=== PATIENT | female | born 1995 | race Caucasian/White ===

== ENCOUNTER 2016-11-21 21:52 | Emergency (ER) | payer OTHER ==
[2016-11-21 21:59] VITALS: BP 123/78; PULSE 54; RESP 18; TEMP 98.1; O2SAT 98
--- NOTE | 2016-11-21 22:13 | EDPHY ---
H & P Stated Complaint: period for over 2 months, bruising and fatigue Time Seen by Provider: 11/21/16 22:06 HPI/ROS: CHIEF COMPLAINT: Vaginal bleeding HISTORY OF PRESENT ILLNESS: The patient has had light vaginal bleeding and spotting for the last 2 months. She is concerned because she feels weak. She has been taking iron pills. She denies risk of and is not sexually active. She has a copper IUD in place. She has had this in place for 3 years. She does not take any hormones. She has a history of migraines and does not tolerate control. [facility] and had a normal pelvic exam with the IUD seen in place and a negative test. She did not have blood work drawn. She has not had a fever. She does not have any abdominal pain. No vomiting or diarrhea. Her mom's friend who is a physician told her to come and have her checked for anemia. No unusual discharge. She states that she is going through about 1 pad per day. REVIEW OF SYSTEMS: Constitutional: denies: chills, fever, recent illness, recent injury EENTM: denies: blurred vision, double vision, nose congestion Respiratory: denies: cough, shortness of breath Cardiac: denies: chest pain, irregular heart rate, lightheadedness, palpitations Gastrointestinal/Abdominal: denies: abdominal pain, diarrhea, nausea, vomiting, blood streaked stools Genitourinary: See HPI, denies: dysuria, frequency, hematuria, pain Musculoskeletal: denies: joint pain, muscle pain Skin: denies: lesions, rash, jaundice, bruising Neurological: denies: headache, numbness, paresthesia, tingling, dizziness, weakness Hematologic/Lymphatic: denies: blood clots, easy bleeding, easy bruising Immunologic/allergic: denies: HIV/AIDS, transplant EXAM: GENERAL: Well-appearing, well-nourished and in no acute distress. HEAD: Atraumatic, normocephalic. EYES: Pupils equal round and reactive to light, extraocular movements intact, sclera anicteric, conjunctiva are normal. ENT: TMs normal, nares patent, oropharynx clear without exudates. Moist mucous membranes. NECK: Normal range of motion, supple without lymphadenopathy or JVD. LUNGS: Breath sounds clear to auscultation bilaterally and equal. No wheezes rales or rhonchi. HEART: Regular rate and rhythm without murmurs, rubs or gallops. ABDOMEN: Soft, nontender, normoactive bowel sounds. No guarding, no rebound. No masses appreciated. BACK: No CVA tenderness, no spinal tenderness, step-offs or deformities EXTREMITIES: Normal range of motion, no pitting or edema. No clubbing or cyanosis. NEUROLOGICAL: Cranial nerves II through XII grossly intact. Normal speech, normal gait. 5/5 strength, normal movement in all extremities, normal sensation PSYCH: Normal mood, normal affect. SKIN: Warm, dry, normal turgor, no visible rashes or lesions. Source: Patient Exam Limitations: No limitations - Personal History LMP (Females 10-55): IUD In Place - Medical/Surgical History Hx Asthma: No Hx Chronic Respiratory Disease: No Hx Diabetes: No Hx Cardiac Disease: No Hx Renal Disease: No Hx Cirrhosis: No Hx Alcoholism: No Hx HIV/AIDS: No Hx Splenectomy or Spleen Trauma: No Other PMH: denies - Family History Significant Family History: No pertinent family hx - Social History Smoking Status: Never smoked Alcohol Use: Sober Drug Use: None Constitutional: Initial Vital Signs Temperature (C) 36.7 C 11/21/16 21:57 Heart Rate 54 L 11/21/16 21:57 Respiratory Rate 18 11/21/16 21:57 Blood Pressure 123/78 H 11/21/16 21:57 O2 Sat (%) 98 11/21/16 21:57 O2 Delivery Mode Room Air Allergies/Adverse Reactions: No Known Allergies Allergy (Verified 11/21/16 21:57) Home Medications: Medication Instructions Recorded NK [No Known Home Meds] 11/21/16 Medical Decision Making ED Course/Re-evaluation: Patient declined pelvic exam because she had one 2 days ago at the clinic and nothing has changed since that time. She denies pain or discharge. She denies fevers. She is here simply to have her hematocrit checked. We will do this with i-STAT. 10:30 p.m. we discussed the patient's hematocrit. She is reassured. She is currently asymptomatic. Vital signs stable. Discussed follow up with OBGYN. She understands and agrees with this plan. She declines further workup or testing at this time. She declined pelvic exam or imaging. Differential Diagnosis: Partial list of the Differential diagnosis considered include but were not limited to; anemia, dysfunctional uterine bleeding, and although unlikely based on the history and physical exam, I also considered , ectopic uterine perforation. I discussed these differential diagnoses and the plan with the patient as well as the usual and expected course. The patient understands that the diagnosis is provisional and that in medicine we are not always correct and that further workup is often warranted. Usual and customary warnings were given. All of the patient's questions were answered. The patient was instructed to return to the emergency department should the symptoms at all worsen or return, otherwise to followup with the physician as we discussed. - Data Points Laboratory Results: 11/21/16 22:17 POC Hgb 13.3 gm/dL gm/dL (12.6-16.3) POC Hct 39 % % (38-47) POC Sodium 142 mEq/L mEq/L (134-144) POC Potassium 3.6 mEq/L mEq/L (3.3-5.0) POC Chloride 101 mEq/L mEq/L (97-110) POC BUN 8 mg/dL mg/dL (7-23) POC Creatinine 0.7 mg/dL mg/dL (0.6-1.0) POC Glucose 79 mg/dL mg/dL (70-100) Point of Care Test Results: 11/21/16 22:17 POC Sodium 142 POC Potassium 3.6 POC Chloride 101 POC BUN 8 POC Creatinine 0.7 POC Glucose 79 Departure - Departure Disposition: Home, Routine, Self-Care Clinical Impression: Dysfunctional uterine bleeding Condition: Fair Instructions: Dysfunctional Uterine Bleeding (ED) Referrals: NONE *PRIMARY CARE P,. [Primary Care Provider] - As per Instructions Jeannette Hollingsworth DO [Doctor of Osteopathy] - As per Instructions
== END 2016-11-21 22:42 | disposition home or self-care (01) ==
LOC: CED 21:52
DX: N93.8 Other specified abnormal uterine and vaginal bleeding (principal)
CPT/HCPCS: 82947-QW